=== PATIENT | female | born 1995 | race Caucasian/White ===

== ENCOUNTER 2017-01-21 21:19 | Emergency (ER) | payer BC ==
[2017-01-21 22:16] VITALS: BP 118/72
--- NOTE | 2017-01-21 22:20 | UC ---
Respiratory Complaint HPI - History of Current Complaint Stated Complaint: FEVER,COUGH,CONGESTION Time Seen by Provider: 01/21/17 22:14 Hx Last Menstrual Period: 10/29/15 ?: No Onset/Duration: Sudden Onset - 3 days, Lasting Days - 3, Worse Since - onset Severity Initially: Mild Severity Currently: Moderate Character: Cough: Nonproductive Associated Signs And Symptoms: Positive: Dyspnea, Fever, Chills, Pleuritic Chest Pain, URI, Nasal Congestion, Hoarseness, Sinus Discomfort - Risk Factors Pulmonary Embolism Risk Factors: Negative Cardiac Risk Factors: Negative Tuberculosis Risk Factors: Negative - Allergies/Home Medications Allergies/Adverse Reactions: Allergies Allergy/AdvReac Type Severity Reaction Status Date / Time Methylphenidate Allergy Rash Verified 01/21/17 22:16 [From Concerta] Home Medications: Home Medications Amoxicillin CAP* [Amoxicillin 500 MG CAP*] 500 mg PO ONCE 01/21/17 [History Confirmed 01/21/17] PMH/Surg Hx/FS Hx/Imm Hx Endocrine History Of: Denies: Diabetes, Thyroid Disease Cardiovascular History Of: Denies: Cardiac Disorders, Hypertension Respiratory History Of: Denies: COPD, Asthma GI/ History Of: Denies: Ulcer - Surgical History Surgical History: None - Family History Known Family History: Negative: Cardiac Disease, Hypertension, Diabetes - Social History Occupation: Employed Full-time Lives: With Family Alcohol Use: Rare Substance Use Type: None Smoking Status (MU): Never Smoked Tobacco Have You Smoked in the Last Year: No Review of Systems Constitutional: Fever, Chills ENT: Sore Throat, Nasal Discharge Respiratory: Shortness Of Breath, Cough Cardiovascular: Chest Pain - with coughing. Neurological: Headache - from frontal sinus wrapping around the head. All Other Systems Reviewed And Are Negative: Yes Physical Exam Triage Information Reviewed: Yes Appearance: No Pain Distress, Well-Nourished, Ill-Appearing - moderately Vital Signs Reviewed: Yes Eyes: Positive: Conjunctiva Inflamed - OU ENT: Positive: Pharynx normal, TMs normal Neck: Positive: Nontender, No Lymphadenopathy Respiratory: Positive: Lungs clear, Wheezing - expiratory with coughing Cardiovascular: Positive: No Murmur, Tachycardia Musculoskeletal Exam: Normal Neurological: Positive: Fatigued Psychological Exam: Normal Skin Exam: Normal Respiratory Course/Dx - Differential Dx/Diagnosis Differential Diagnosis/HQI/PQRI: Influenza, Lower Resp Infection, Sinusitis Provider Diagnoses: Influenza Type B Discharge - Discharge Plan Condition: Stable Disposition: HOME Prescriptions: Oseltamivir CAP* [Tamiflu CAP*] 75 mg PO BID #10 cap Patient Education Materials: Influenza (ED), Oseltamivir (By mouth)
[2017-01-21] MEDS ORDERED: Ibuprofen TAB* 600 MG PO ONE (22:46)
[2017-01-21] MEDS ORDERED: Oseltamivir CAP* 75 MG PO ONE (22:46)
== END 2017-01-21 22:57 | disposition home or self-care (01) ==
LOC: UCCORT 21:19
DX: J11.1 Influenza due to unidentified influenza virus with other respiratory manifestations (principal)
CPT/HCPCS: 87502; 99212; A9270-GY; G0463

== ENCOUNTER 2017-03-12 17:12 | Emergency (ER) | payer SELFPAY ==
--- NOTE | 2017-03-12 20:04 | UC ---
Complaint Female HPI - HPI Summary HPI Summary: 4 days of lower abd pain/ pressure and pressure/discomfort with urination - History Of Current Complaint Chief Complaint: UCAbdominalPain Stated Complaint: ABDOMINAL PAIN/FEVER Time Seen by Provider: 03/12/17 19:52 Hx Obtained From: Patient Hx Last Menstrual Period: 02/09/17 ?: No Onset/Duration: Sudden Onset, Lasting Days - 4, Still Present Timing: Constant Severity Initially: Moderate Severity Currently: Moderate Pain Intensity: 7 Pain Scale Used: 0-10 Numeric Character: Burning - pressure Aggravating Factor(s): Urination Alleviating Factor(s): Nothing Associated Signs And Symptoms: Positive: Nausea. 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 Endocrine History Of: Denies: Diabetes, Thyroid Disease Cardiovascular History Of: Denies: Cardiac Disorders, Hypertension Respiratory History Of: Denies: COPD, Asthma GI/ History Of: Denies: Ulcer - Surgical History Surgical History: None - Family History Known Family History: Positive: Unknown Negative: Cardiac Disease, Hypertension, Diabetes Family History: no cardio vascular gu issues reported in family lineage - Social History Occupation: Employed Full-time Lives: With Family Alcohol Use: Occasionally Substance Use Type: None Smoking Status (MU): Never Smoked Tobacco Have You Smoked in the Last Year: No - Immunization History Most Recent Influenza Vaccination: NONE Review of Systems Constitutional: Fever Skin: Negative Eyes: Negative ENT: Negative Respiratory: Negative Cardiovascular: Negative Gastrointestinal: Abdominal Pain Genitourinary: Dysuria Motor: Negative Neurovascular: Negative Musculoskeletal: Negative Neurological: Negative Psychological: Negative All Other Systems Reviewed And Are Negative: Yes Physical Exam Triage Information Reviewed: Yes Appearance: Well-Appearing, No Pain Distress, Well-Nourished Vital Signs: Initial Vital Signs Temp 99.9 F 03/12/17 17:30 Pulse 106 03/12/17 17:30 Resp 14 03/12/17 17:30 BP 123/69 03/12/17 17:30 Pulse Ox 100 03/12/17 17:30 Vital Signs Reviewed: Yes Eye Exam: Normal Eyes: Positive: Conjunctiva Clear ENT Exam: Normal ENT: Positive: Normal ENT inspection, Hearing grossly normal, Pharynx normal, TMs normal. Negative: Nasal congestion, Nasal drainage, Tonsillar swelling, Tonsillar exudate, Trismus, Muffled/hoarse voice Dental Exam: Normal Neck exam: Normal Neck: Positive: Supple, Nontender, No Lymphadenopathy Respiratory Exam: Normal Respiratory: Positive: Chest non-tender, Lungs clear, Normal breath sounds, No respiratory distress, No accessory muscle use Cardiovascular Exam: Normal Cardiovascular: Positive: No Murmur, Pulses Normal, Brisk Capillary Refill, Tachycardia Abdominal Exam: Normal Abdomen Description: Positive: No Organomegaly, Soft, Other: - lower abd discomfort. Negative: CVA Tenderness (R), CVA Tenderness (L), Distended Musculoskeletal Exam: Normal Musculoskeletal: Positive: Strength Intact, ROM Intact, No Edema Neurological Exam: Normal Neurological: Positive: Alert, Muscle Tone Normal Psychological Exam: Normal Skin Exam: Normal Complaint Female Dx - Course Course Of Treatment: Culture urine, Rocephin, Keflex increase fluids, follow with pcp - Differential Dx/Diagnosis Differential Diagnosis/HQI/PQRI: Pelvic Inflammatory Disease, Renal Colic, Urinary Tract Infection Provider Diagnoses: UTI, Febrile Illness Discharge - Discharge Plan Condition: Stable Disposition: HOME Prescriptions: Cephalexin CAP* [Keflex CAP*] 500 mg PO BID #20 cap Patient Education Materials: Urinary Tract Infection in Women (ED) Forms: *Work Release Referrals: [facility] [Outside] - 1 Week No Primary Care Phys,NOPCP [Primary Care Provider] -
[2017-03-12] MEDS ORDERED: Lidocaine 1% MPF* 2 ML VIAL INJ ONE (20:13)
[2017-03-12] MEDS ORDERED: cefTRIAXone VIAL(*) 1,000 MG VIAL IM ONE (20:13)
[2017-03-12 20:31] VITALS: BP 121/64
== END 2017-03-12 20:48 | disposition home or self-care (01) ==
LOC: UCCORT 17:12
DX: N39.0 Urinary tract infection, site not specified (principal); R50.9 Fever, unspecified
CPT/HCPCS: 81003; 84702; 87086; 96372; 99212; G0463; J0696

== ENCOUNTER 2017-10-23 12:18 | Emergency (ER) | payer BC, OTHER ==
[2017-10-23 13:37] VITALS: BP 124/64
--- NOTE | 2017-10-23 13:59 | UC ---
Complaint Female HPI - HPI Summary HPI Summary: burning on urination x 1 day + frequency , urgency no fever, no chills, no flank pain - History Of Current Complaint Chief Complaint: UCGU Stated Complaint: URINARY Time Seen by Provider: 10/23/17 13:46 Hx Obtained From: Patient Hx Last Menstrual Period: 10/04/17 ?: No Onset/Duration: Gradual Onset, Lasting Days - 1, Still Present Timing: Constant Severity Initially: Moderate Severity Currently: Moderate Character: Burning Aggravating Factor(s): Urination Alleviating Factor(s): Nothing Associated Signs And Symptoms: Negative: Fever, Back Pain, Vaginal Bleeding/ Discharge, Vaginal Discharge, Nausea, Vomiting(# Of Episodes =), Genital Swelling, Genital Blisters, Retained Foregin Body (Specify) - Allergies/Home Medications Allergies/Adverse Reactions: Allergies Allergy/AdvReac Type Severity Reaction Status Date / Time Methylphenidate Allergy Rash Verified 10/23/17 13:33 [From [employer]] Home Medications: Home Medications Nuva Ring ONCE 10/23/17 [History] Phendimetrazine Tartrate 2 tab PO TID 10/23/17 [History Confirmed 10/23/17] PMH/Surg Hx/FS Hx/Imm Hx Previously Healthy: Yes - Surgical History Surgical History: None - Family History Known Family History: Positive: Unknown Negative: Cardiac Disease, Hypertension, Diabetes Family History: no cardio vascular gu issues reported in family lineage - Social History Alcohol Use: Occasionally Substance Use Type: None Smoking Status (MU): Never Smoked Tobacco Have You Smoked in the Last Year: No - Immunization History Most Recent Influenza Vaccination: NONE Review of Systems Constitutional: Negative Skin: Negative Eyes: Negative ENT: Negative Respiratory: Negative Genitourinary: Dysuria, Frequency, Urgency Motor: Negative Is Patient Immunocompromised?: No All Other Systems Reviewed And Are Negative: Yes Physical Exam Triage Information Reviewed: Yes Appearance: Well-Appearing, Well-Nourished, Obese Vital Signs: Initial Vital Signs Temp 98 F 10/23/17 13:35 Pulse 93 10/23/17 13:35 Resp 16 10/23/17 13:35 BP 124/64 10/23/17 13:35 Vital Signs Reviewed: Yes Eyes: Positive: Conjunctiva Clear ENT: Positive: Normal ENT inspection, Hearing grossly normal, Pharynx normal Neck: Positive: Supple, Nontender, No Lymphadenopathy Respiratory: Positive: Chest non-tender, Lungs clear, Normal breath sounds Cardiovascular: Positive: RRR, No Murmur, Pulses Normal Musculoskeletal Exam: Normal Skin Exam: Normal Complaint Female Dx - Differential Dx/Diagnosis Provider Diagnoses: uti Discharge - Discharge Plan Condition: Stable Disposition: HOME Prescriptions: Sulfamethox/Trimethoprim DS* [Bactrim DS 800/160 TAB*] 1 tab PO BID #14 tab Patient Education Materials: Urinary Tract Infection in Women (ED) Referrals: Raoul Odell MD [Primary Care Provider] -
== END 2017-10-23 14:09 | disposition home or self-care (01) ==
LOC: UCCORT 12:18
DX: N39.0 Urinary tract infection, site not specified (principal); Z72.89 Other problems related to lifestyle
CPT/HCPCS: 81003; 87086; 99212; G0463

== ENCOUNTER 2018-04-09 16:37 | Emergency (ER) | payer BC, OTHER ==
[2018-04-09 17:06] VITALS: BP 113/65
--- NOTE | 2018-04-09 17:28 | UC ---
Complaint Female HPI - HPI Summary HPI Summary: Patient is complaining of what she believes to be urinary tract infection. She describes as frequency urgency and burning with urination. She states that she had urinary tract infection past and this feels the same. She has no fever, abdominal pain, back pain or concerns for pelvic infection. This is day 4 of her symptoms. - History Of Current Complaint Hx Obtained From: Patient Hx Last Menstrual Period: 03/29/18 Onset/Duration: Gradual Onset Timing: Constant Pain Intensity: 0 Aggravating Factor(s): Nothing Alleviating Factor(s): Nothing Associated Signs And Symptoms: Negative: Fever, Back Pain, Vaginal Bleeding/ Discharge <Leah Nix - Last Filed: 04/09/18 17:28> <Parth Bustamante - Last Filed: 04/09/18 20:03> - History Of Current Complaint Chief Complaint: UCGU Stated Complaint: URINARY COMPLAINT Time Seen by Provider: 04/09/18 17:09 - Allergies/Home Medications Allergies/Adverse Reactions: Allergies Allergy/AdvReac Type Severity Reaction Status Date / Time methylphenidate Allergy Intermediate Rash Verified 04/09/18 17:09 [From [employer]] PMH/Surg Hx/FS Hx/Imm Hx Previously Healthy: Yes - Surgical History Surgical History: Yes Surgery Procedure, Year, and Place: appendectomy 01/2018 - Family History Known Family History: Positive: Unknown Negative: Cardiac Disease, Hypertension, Diabetes Family History: no cardio vascular gu issues reported in family lineage - Social History Occupation: Employed Full-time Lives: With Family Alcohol Use: Occasionally Substance Use Type: None Smoking Status (MU): Never Smoked Tobacco Have You Smoked in the Last Year: No - Immunization History Most Recent Influenza Vaccination: NONE <Leah Nix - Last Filed: 04/09/18 17:28> Review of Systems Constitutional: Negative Skin: Negative Eyes: Negative ENT: Negative Respiratory: Negative Cardiovascular: Negative Gastrointestinal: Negative Genitourinary: Dysuria, Frequency, Urgency Motor: Negative Neurovascular: Negative Musculoskeletal: Negative Neurological: Negative Psychological: Negative Is Patient Immunocompromised?: No All Other Systems Reviewed And Are Negative: Yes <Leah Nix - Last Filed: 04/09/18 17:28> Physical Exam Triage Information Reviewed: Yes Appearance: Well-Appearing Vital Signs: Initial Vital Signs Temp 98.2 F 04/09/18 17:03 Pulse 88 06/26/18 17:03 Resp 16 04/09/18 17:03 BP 113/65 04/09/18 17:03 Pulse Ox 100 04/09/18 17:03 Vital Signs Reviewed: Yes Eyes: Positive: Conjunctiva Clear ENT: Positive: Normal ENT inspection Neck: Positive: Supple, Nontender, No Lymphadenopathy Respiratory: Positive: Lungs clear, Normal breath sounds Cardiovascular: Positive: RRR, No Murmur Abdomen Description: Positive: Nontender, No Organomegaly, Soft. Negative: CVA Tenderness (R), CVA Tenderness (L), Distended, Guarding Bowel Sounds: Positive: Present Musculoskeletal: Positive: ROM Intact Neurological: Positive: Alert Psychological: Positive: Age Appropriate Behavior Skin Exam: Normal <Leah Nix - Last Filed: 04/09/18 17:28> Vital Signs: Initial Vital Signs Temp 98.2 F 04/09/18 17:03 Pulse 88 04/09/18 17:03 Resp 16 04/09/18 17:03 BP 113/65 04/09/18 17:03 Pulse Ox 100 04/09/18 17:03 <Parth Bustamante - Last Filed: 04/09/18 20:03> Diagnostics - Laboratory Diagnostic Studies Completed/Ordered: u/a + for leukocytes. culture pending. <Leah Nix - Last Filed: 04/09/18 17:28> Complaint Female Dx - Course Course Of Treatment: no concern for pyelonephritis. no acute abdomen. - Differential Dx/Diagnosis Provider Diagnoses: UTI <Leah Nix - Last Filed: 04/09/18 17:28> Discharge - Sign-Out/Discharge Documenting (check all that apply): Discharge/Admit/Transfer - Billing Disposition and Condition Condition: STABLE Disposition: Home <Leah Nix - Last Filed: 04/09/18 17:28> - Billing Disposition and Condition Condition: STABLE Disposition: Home <Parth Bustamante - Last Filed: 04/09/18 20:03> - Discharge Plan Condition: Stable Disposition: HOME Prescriptions: Nitrofurantoin Monohyd/M-Cryst [Macrobid 100 mg Capsule] 100 mg PO BID #10 cap Patient Education Materials: Urinary Tract Infection in Women (DC) Referrals: Raoul Odell MD [Primary Care Provider] - 7 Days Additional Instructions: Per institutional requirements, I have reviewed the chart, however, I was not consulted specifically or made aware of this patient by the above midlevel provider. I did not personally evaluate, interact with , or disposition this patient.
== END 2018-04-09 17:31 | disposition home or self-care (01) ==
LOC: UCCORT 16:37
DX: N39.0 Urinary tract infection, site not specified (principal); B96.20 Unspecified Escherichia coli [E. coli] as the cause of diseases classified elsewhere; Z88.8 Allergy status to other drugs, medicaments and biological substances
CPT/HCPCS: 81003; 87077; 87086; 87186; 99212; G0463

== ENCOUNTER 2018-06-09 12:11 | Emergency (ER) | payer BC ==
[2018-06-09 13:30] VITALS: BP 112/68
--- NOTE | 2018-06-09 13:45 | UC ---
Back Pain HPI - HPI Summary HPI Summary: patient states that while lifting heavy large pieces of firewood yesterday she experienced a sudden sharp pain on the left side of her lower back he states that it radiated into her leg. Today she has some ongoing discomfort in her left lower back and notes that if she puts any pressure on her left buttock such as sitting she feels the tingling and numbness in her left leg. She denies any associated fever and abdominal pain. She has no associated weakness in her legs, saddle anesthesia or bowel/bladder dysfunction. no self tx. - History of Current Complaint Chief Complaint: UCBackPain Stated Complaint: LOWER BACK PAIN Time Seen by Provider: 06/09/18 13:36 Hx Obtained From: Patient Hx Last Menstrual Period: 04/28/18 Onset/Duration: Sudden Onset Timing: Constant Pain Intensity: 5 Aggravating Factor(s): Movement, Other - pressure L buttock Associated Signs And Symptoms: Negative: Fever, Weakness, Abdominal Pain, Flank Pain, Bladder Incontinence, Bowel Incontinence - Risk Factors AAA Risk Factors: Negative TAD Risk Factors: Negative - Allergies/Home Medications Allergies/Adverse Reactions: Allergies Allergy/AdvReac Type Severity Reaction Status Date / Time methylphenidate Allergy Intermediate Rash Verified 06/09/18 13:22 [From [employer]] PMH/Surg Hx/FS Hx/Imm Hx Previously Healthy: Yes - Surgical History Surgical History: Yes Surgery Procedure, Year, and Place: appendectomy 01/2018 - Family History Known Family History: Positive: None Negative: Cardiac Disease, Hypertension, Diabetes Family History: no cardio vascular gu issues reported in family lineage - Social History Occupation: Employed Full-time Alcohol Use: Occasionally Substance Use Type: None Smoking Status (MU): Never Smoked Tobacco Have You Smoked in the Last Year: No - Immunization History Most Recent Influenza Vaccination: NONE Vaccination Up to Date: Yes Review of Systems Constitutional: Negative Skin: Negative Eyes: Negative ENT: Negative Respiratory: Negative Cardiovascular: Negative Gastrointestinal: Negative Genitourinary: Negative Motor: Negative Neurovascular: Negative Musculoskeletal: Other: - pain L low back Neurological: Numbness - occ LLE Psychological: Negative Is Patient Immunocompromised?: No All Other Systems Reviewed And Are Negative: Yes Physical Exam Triage Information Reviewed: Yes Appearance: Well-Appearing Vital Signs: Initial Vital Signs Temp 98.8 F 06/09/18 13:23 Pulse 80 08/26/18 13:23 Resp 16 06/09/18 13:23 BP 112/68 06/09/18 13:23 Pulse Ox 99 06/09/18 13:23 Vital Signs Reviewed: Yes Eyes: Positive: Conjunctiva Clear ENT: Positive: Normal ENT inspection Neck: Positive: Supple, Nontender, No Lymphadenopathy Respiratory: Positive: Lungs clear, Normal breath sounds Cardiovascular: Positive: RRR, No Murmur Abdomen Description: Positive: Nontender, No Organomegaly, Soft. Negative: Distended, Guarding Bowel Sounds: Positive: Present Musculoskeletal: Positive: Other: - Back is Bare for exam. No gross deformity swelling or discoloration. Cervical thoracic and lumbar spinous processes are without tenderness to palpation and there is no instability. Patient notes tenderness to palpation to her paraspinal muscles in the left lumbar region. She has tenderness to palpation of left sciatic notch which also reproduces discomfort into her left lower extremity. Range of motion in her back is intact throughout. She is 5 out of 5 strength and 2+ reflexes 4 area did no saddle anesthesia. Steady gait. Straight leg raise on the right was negative. Straight leg raise on the left is positive. Neurological: Positive: Alert Psychological: Positive: Age Appropriate Behavior Skin Exam: Normal Back Pain Course/Dx - Course Course Of Treatment: No concern for acute abdomen, infection and fracture. No concern for cauda equina. Exam is consistent with acute left low back pain and sciatica. Single dose of Decadron given here. We will continue with anti- inflammatory and muscle relaxer home. Close follow-up with primary care provider for recheck advised. Patient advised to follow up sooner for any change or worsening. She is also being removed from work for 3 days. - Differential Dx/Diagnosis Provider Diagnoses: Acute left low back pain. Sciatica-left Discharge - Sign-Out/Discharge Documenting (check all that apply): Patient Departure All imaging exams completed and their final reports reviewed: No Studies - Discharge Plan Condition: Stable Disposition: HOME Prescriptions: Cyclobenzaprine TAB* [Flexeril 10 MG TAB*] 10 mg PO TID #10 tab Naproxen [Naprosyn 500 mg tab] 500 mg PO BID 5 Days #10 tablet Patient Education Materials: Sciatica (ED), Acute Low Back Pain (ED) Forms: *Work Release Referrals: Raoul Odell MD [Primary Care Provider] - 3 Days - Billing Disposition and Condition Condition: STABLE Disposition: Home
[2018-06-09] MEDS ORDERED: Dexamethasone TAB* 4 MG PO ONE (13:51)
== END 2018-06-09 14:03 | disposition home or self-care (01) ==
LOC: UCCORT 12:11
DX: M54.42 Lumbago with sciatica, left side (principal); Z88.8 Allergy status to other drugs, medicaments and biological substances
CPT/HCPCS: 99212; G0463; J8540

== ENCOUNTER 2018-09-02 16:58 | Emergency (ER) | payer BC ==
[2018-09-02 17:29] VITALS: BP 121/62
--- NOTE | 2018-09-02 17:46 | UC ---
Respiratory Complaint HPI - HPI Summary HPI Summary: 23 year old female presents with 2 week history of non-productive cough. Denies fever, chills, nasal congestion, sore throat, chest pain, shortness of breath, abdominal pain, nausea, or vomiting. - History of Current Complaint Chief Complaint: UCGeneralIllness Stated Complaint: COUGH Time Seen by Provider: 09/02/18 17:34 Hx Obtained From: Patient Hx Last Menstrual Period: 08/29/18 Onset/Duration: Gradual Onset, Lasting Weeks - 2 Pain Intensity: 0 Character: Cough: Nonproductive Aggravating Factors: Deep Breaths Alleviating Factors: Nothing Associated Signs And Symptoms: Negative: Dyspnea, Fever, Chills, Pleuritic Chest Pain, Wheezing, Hemoptysis, URI, Nasal Congestion, Sinus Discomfort - Allergies/Home Medications Allergies/Adverse Reactions: Allergies Allergy/AdvReac Type Severity Reaction Status Date / Time methylphenidate Allergy Intermediate Rash Verified 09/02/18 17:29 [From [employer]] Home Medications: Home Medications Phendimetrazine Tartrate 2 tab PO TID 09/02/18 [History Confirmed 09/02/18] PMH/Surg Hx/FS Hx/Imm Hx Previously Healthy: Yes - Denies significant PMH - Surgical History Surgical History: Yes Surgery Procedure, Year, and Place: appendectomy 01/2018 - Family History Known Family History: Positive: Non-Contributory - Social History Occupation: Employed Full-time Lives: With Family Alcohol Use: Occasionally Substance Use Type: None Smoking Status (MU): Never Smoked Tobacco Have You Smoked in the Last Year: No - Immunization History Most Recent Influenza Vaccination: NONE Vaccination Up to Date: Yes Review of Systems All Other Systems Reviewed And Are Negative: Yes Constitutional: Negative: Fever, Chills Skin: Negative: Rash ENT: Negative: Sore Throat, Ear Ache, Nasal Discharge, Sinus Congestion, Sinus Pain/Tenderness Respiratory: Positive: Cough. Negative: Shortness Of Breath Cardiovascular: Negative: Palpitations, Chest Pain Gastrointestinal: Negative: Abdominal Pain, Vomiting, Nausea Is Patient Immunocompromised?: No Physical Exam Triage Information Reviewed: Yes Appearance: Well-Appearing, No Pain Distress, Well-Nourished Vital Signs: Initial Vital Signs Temp 97.4 F 09/02/18 17:25 Pulse 89 09/02/18 17:25 Resp 17 09/02/18 17:25 BP 121/62 09/02/18 17:25 Pulse Ox 100 09/02/18 17:25 Eyes: Positive: Conjunctiva Clear. Negative: Discharge ENT: Positive: Hearing grossly normal, TMs normal, Uvula midline. Negative: Pharyngeal erythema, Nasal congestion, Nasal drainage, Tonsillar swelling, Tonsillar exudate, Sinus tenderness Neck: Positive: Supple, Nontender, No Lymphadenopathy Respiratory: Positive: Chest non-tender, Lungs clear, Normal breath sounds, No respiratory distress, Other: - Non-productive cough Cardiovascular: Positive: RRR, No Murmur, Pulses Normal, Brisk Capillary Refill Neurological: Positive: Alert Skin Exam: Normal Diagnostic Evaluation - Laboratory O2 Sat by Pulse Oximetry: 100 Respiratory Course/Dx - Course Course Of Treatment: 23 year old female with 2 week history of nonproductive cough. Afebrile. Exam unremarkable except for harsh, nonproductive cough. With duration of symptoms will treat with course of azithromycin and provide Tessalon Perles for cough management. She is to follow up with PCP in 7 days if symptoms persist. Warning symptoms were reviewed. Verbalizes understanding and agrees with POC. - Differential Dx/Diagnosis Differential Diagnosis/HQI/PQRI: Bronchitis, Influenza, Lower Resp Infection, Other - URI Provider Diagnoses: acute bronchitis Discharge - Sign-Out/Discharge Documenting (check all that apply): Patient Departure All imaging exams completed and their final reports reviewed: No Studies - Discharge Plan Condition: Stable Disposition: HOME Prescriptions: Azithromyxin VASHTI (NF) [Z-Vashti (Zithromax) 250 mg tabs #6] 2 tab PO .TODAY, THEN 1 DAILY #6 tab Benzonatate CAP* [Tessalon 100 MG CAP*] 100 mg PO TID PRN #30 cap PRN Reason: Cough Patient Education Materials: Acute Bronchitis (ED) Forms: *Work Release Referrals: Raoul Odell MD [Primary Care Provider] - 7 Days (If symptoms persist) Additional Instructions: Your history and exam are consistent with an acute bronchitis. Considering the duration of your symptoms we will treat you with an antibiotic. Start azithromycin 2 tabs today then 1 tab a day for the next 4 days. Use Tessalon Perles 1 cap every 8 hours as needed for cough. Get plenty of rest. Drink plenty of fluids. I would recommend using a humidifier in your bedroom at night. Follow up with your primary care provider in 7 days if symptoms persist. Seek immediate medical attention in the emergency room if you develop fever greater than 100.5 F, have chest pain, shortness of breath, or any worsening of symptoms. - Billing Disposition and Condition Condition: STABLE Disposition: Home
== END 2018-09-02 17:52 | disposition home or self-care (01) ==
LOC: UCCORT 16:58
DX: J20.9 Acute bronchitis, unspecified (principal); Z88.8 Allergy status to other drugs, medicaments and biological substances
CPT/HCPCS: 99212; G0463

== ENCOUNTER 2018-11-03 19:28 | Emergency (ER) | payer BC ==
[2018-11-03 20:20] VITALS: BP 123/60
--- NOTE | 2018-11-03 20:32 | UC ---
Hip/Pelvis Pain - HPI Summary HPI Summary: C/O left hip pain, occured while climbing into a tractor. [place] like a muscle/ joint slipping with a really sharp pain. Not jumping down. - History Of Current Complaint Chief Complaint: UCBackPain Stated Complaint: LEFT HIP PAIN Hx Obtained From: Patient Hx Last Menstrual Period: 10/26/18 ?: No Onset/Duration: Sudden Onset, Lasting Days - 3, Still Present Severity Initially: Moderate Severity Currently: Moderate Pain Intensity: 5 Location: Discrete At: - left anterior hip Character Of Pain: Sharp Aggravating Factor(s): Weight Bearing - climbing up gives the sharp pain., Other - certain positions gives numbness and tingling. Associated Signs And Symptoms: Positive: Weakness - with walking.. Negative: Swelling, Bruising - Allergies/Home Medications Allergies/Adverse Reactions: Allergies Allergy/AdvReac Type Severity Reaction Status Date / Time methylphenidate Allergy Intermediate Rash Verified 09/02/18 17:29 [From [employer]] Home Medications: Home Medications Acetaminophen [Mapap] 650 mg PO ONCE 11/03/18 [History Confirmed 11/03/18] PMH/Surg Hx/FS Hx/Imm Hx Previously Healthy: Yes - Surgical History Surgical History: Yes Surgery Procedure, Year, and Place: appendectomy 01/2018 - Family History Known Family History: Positive: Non-Contributory Negative: Cardiac Disease, Hypertension, Diabetes Family History: no cardio vascular gu issues reported in family lineage - Social History Occupation: Employed Full-time Lives: With Family Alcohol Use: Occasionally Substance Use Type: None Smoking Status (MU): Never Smoked Tobacco Have You Smoked in the Last Year: No - Immunization History Most Recent Influenza Vaccination: NONE Vaccination Up to Date: Yes Review of Systems All Other Systems Reviewed And Are Negative: Yes Musculoskeletal: Positive: Arthralgia - left hip Neurological: Positive: Weakness - left leg, Numbness Is Patient Immunocompromised?: No Physical Exam Triage Information Reviewed: Yes Appearance: Well-Appearing, Well-Nourished, Pain Distress - just with walking Vital Signs: Initial Vital Signs Temp 97.6 F 11/03/18 20:14 Pulse 80 11/03/18 20:14 Resp 17 11/03/18 20:14 BP 123/60 11/03/18 20:14 Pulse Ox 99 11/03/18 20:14 Vital Signs Reviewed: Yes Eyes: Positive: Conjunctiva Clear ENT: Positive: Pharynx normal, TMs normal Neck exam: Normal Respiratory Exam: Normal Cardiovascular Exam: Normal Musculoskeletal: Positive: Strength Limited @ - Left hip flexion. Gastroc on left weak as well, Other: - Tenderness left anterior hip over the hip flexors. Neurological: Positive: Other: - Dysaesthesia to pinprick left leg In the L5/S1 distribution. Psychological Exam: Normal Skin Exam: Normal Diagnostics - Radiology No standard instances Radiology Interpretation Completed By: ED Physician Summary of Radiographic Findings: L5S1 DDD Hip Injury Course/Dx - Differential Dx/Diagnosis Differential Diagnosis/HQI/PQRI: Sciatica, Sprain, Strain Provider Diagnosis: Lumbar radiculopathy, Strain of hip flexor Discharge - Sign-Out/Discharge Documenting (check all that apply): Patient Departure All imaging exams completed and their final reports reviewed: No Studies - Discharge Plan Condition: Stable Disposition: HOME Prescriptions: predniSONE TAB* [Deltasone 20 MG TAB*] 60 mg PO DAILY #18 tab Patient Education Materials: Lumbar Radiculopathy (ED), Prednisone (By mouth), Muscle Strain (ED) Forms: *Work Release Referrals: Raoul Odell MD [Primary Care Provider] - 2 Weeks (Recheck on the leg numbness and weakness) - Billing Disposition and Condition Condition: STABLE Disposition: Home
== END 2018-11-03 21:16 | disposition home or self-care (01) ==
LOC: UCCORT 19:28
DX: S76.012A Strain of muscle, fascia and tendon of left hip, initial encounter (principal); M54.16 Radiculopathy, lumbar region; Z88.8 Allergy status to other drugs, medicaments and biological substances; X58.XXXA Exposure to other specified factors, initial encounter; Y93.39 Activity, other involving climbing, rappelling and jumping off; Y92.9 Unspecified place or not applicable
CPT/HCPCS: 72110; 99212; G0463

== ENCOUNTER 2019-01-19 13:19 | Emergency (ER) | payer BC ==
[2019-01-19 14:24] VITALS: BP 108/64
--- NOTE | 2019-01-19 14:27 | UC ---
Throat Pain/Nasal Roman HPI - HPI Summary HPI Summary: Patient complaining of left sided frontal sinus pain, headache that is notgoing away. hx of migraines bu this headache is located above the left eye. - History of Current Complaint Stated Complaint: COUGH,CONGESTION Time Seen by Provider: 01/19/19 14:14 Hx Obtained From: Patient Hx Last Menstrual Period: 10/26/18 ?: No Onset/Duration: Sudden Onset, Lasting Days Severity: Moderate Associated Signs & Symptoms: Positive: Dysphagia, Sinus Discomfort, Nasal Discharge - Allergies/Home Medications Allergies/Adverse Reactions: Allergies Allergy/AdvReac Type Severity Reaction Status Date / Time methylphenidate Allergy Intermediate Rash Verified 01/19/19 14:22 [From [employer]] PMH/Surg Hx/FS Hx/Imm Hx Previously Healthy: Yes - Surgical History Surgical History: Yes Surgery Procedure, Year, and Place: appendectomy 01/2018 - Family History Known Family History: Positive: Non-Contributory Negative: Cardiac Disease, Hypertension, Diabetes Family History: no cardio vascular gu issues reported in family lineage - Social History Alcohol Use: Occasionally Substance Use Type: None Smoking Status (MU): Never Smoked Tobacco Have You Smoked in the Last Year: No - Immunization History Most Recent Influenza Vaccination: NONE Vaccination Up to Date: Yes Review of Systems All Other Systems Reviewed And Are Negative: Yes Constitutional: Positive: Fatigue Skin: Positive: Negative Eyes: Positive: Negative ENT: Positive: Sore Throat, Nasal Discharge, Sinus Congestion, Sinus Pain/ Tenderness Respiratory: Positive: Cough Cardiovascular: Positive: Negative Gastrointestinal: Positive: Negative Genitourinary: Positive: Negative Motor: Positive: Negative Neurovascular: Positive: Negative Musculoskeletal: Positive: Negative Neurological: Positive: Headache Psychological: Positive: Negative Is Patient Immunocompromised?: No Physical Exam Triage Information Reviewed: Yes Appearance: Well-Nourished, Ill-Appearing, Pain Distress Eye Exam: Normal ENT: Positive: Pharyngeal erythema - wiht pnd, Nasal congestion, TM bulging, Sinus tenderness Dental Exam: Normal Neck exam: Normal Respiratory Exam: Normal Respiratory: Positive: Chest non-tender, Lungs clear, Normal breath sounds Cardiovascular Exam: Normal Cardiovascular: Positive: RRR, No Murmur, Pulses Normal Abdominal Exam: Normal Abdomen Description: Positive: Nontender, No Organomegaly, Soft Bowel Sounds: Positive: Present Musculoskeletal Exam: Normal Neurological Exam: Normal Psychological Exam: Normal Skin Exam: Normal Throat Pain/Nasal Course/Dx - Course Course Of Treatment: hx obtained, exam performed ,meds reviewed, ua obtained to r/o . treated for sinusitis - Differential Dx/Diagnosis Differential Diagnosis/HQI/PQRI: Laryngitis, Otitis Media, Pharyngitis, Sinusitis, URI Provider Diagnosis: Sinusitis Discharge - Sign-Out/Discharge Documenting (check all that apply): Patient Departure All imaging exams completed and their final reports reviewed: No Studies - Discharge Plan Condition: Stable Disposition: HOME Patient Education Materials: Sinusitis (ED) Referrals: Raoul Odell MD [Primary Care Provider] - Additional Instructions: 1. take the medication as prescribed. INcrease fluids and take ibuprofen 400 mg every 4 hours for pain 3. Follow up as needed. - Billing Disposition and Condition Condition: STABLE Disposition: Home
== END 2019-01-19 14:49 | disposition home or self-care (01) ==
LOC: UCCORT 13:19
DX: J32.9 Chronic sinusitis, unspecified (principal); Z88.8 Allergy status to other drugs, medicaments and biological substances; R13.10 Dysphagia, unspecified
CPT/HCPCS: 84702; 99212; G0463

== ENCOUNTER 2019-04-09 13:27 | Emergency (ER) | payer BC ==
[2019-04-09 13:42] VITALS: BP 134/66
--- NOTE | 2019-04-09 14:42 | UC ---
Abdominal Pain Female HPI - HPI Summary HPI Summary: 23-year-old female comes in with chief complaint of intermittent upper abdominal pain for 5 days. It's worse in the right upper quadrant. It gets worse after eating and calms down later. Does have a history of GERD and is having GERD symptoms. No fevers or chills. Stools been slightly electrologist than usual and looser. Patient is status post appendectomy. No dysuria no urinary symptoms. No fevers. - History of Current Complaint Chief Complaint: UCAbdominalPain Stated Complaint: ABD PAIN x 5 DAYS Time Seen by Provider: 04/09/19 13:57 Hx Last Menstrual Period: 04/07/19 (medicine induced) Pain Intensity: 2 Allergies/Adverse Reactions: Allergies Allergy/AdvReac Type Severity Reaction Status Date / Time methylphenidate Allergy Intermediate Rash Verified 04/09/19 13:37 [From Concerta] PMH/Surg Hx/FS Hx/Imm Hx Previously Healthy: Yes - Surgical History Surgical History: Yes Surgery Procedure, Year, and Place: Appendectomy, [facility] [place] - Family History Known Family History: Positive: Non-Contributory Negative: Cardiac Disease, Hypertension, Diabetes Family History: no cardio vascular gu issues reported in family lineage - Social History Alcohol Use: Occasionally Substance Use Type: None Smoking Status (MU): Never Smoked Tobacco Have You Smoked in the Last Year: No - Immunization History Most Recent Influenza Vaccination: NONE Vaccination Up to Date: Yes Review of Systems All Other Systems Reviewed And Are Negative: Yes Constitutional: Positive: Negative Skin: Positive: Negative Eyes: Positive: Negative ENT: Positive: Negative Respiratory: Positive: Negative Cardiovascular: Positive: Negative Gastrointestinal: Positive: Abdominal Pain Genitourinary: Positive: Negative Motor: Positive: Negative Neurovascular: Positive: Negative Musculoskeletal: Positive: Negative Neurological: Positive: Negative Psychological: Positive: Negative Is Patient Immunocompromised?: No Physical Exam Triage Information Reviewed: Yes Appearance: Well-Appearing, No Pain Distress, Well-Nourished Vital Signs: Initial Vital Signs Temp 98.1 F 04/09/19 13:34 Pulse 100 04/09/19 13:34 Resp 18 04/09/19 13:34 BP 134/66 04/09/19 13:34 Pulse Ox 100 04/09/19 13:34 Vital Signs Reviewed: Yes Eye Exam: Normal Eyes: Positive: Conjunctiva Clear Neck: Positive: Supple Respiratory: Positive: Lungs clear, Normal breath sounds, No respiratory distress Cardiovascular: Positive: RRR Abdomen Description: Positive: Other: - Tender to palpation RUQ.. Negative: CVA Tenderness (R), CVA Tenderness (L), Distended Bowel Sounds: Positive: Present Musculoskeletal Exam: Normal Musculoskeletal: Positive: Strength Intact, ROM Intact Neurological Exam: Normal Neurological: Positive: Alert, Muscle Tone Normal Psychological Exam: Normal Psychological: Positive: Age Appropriate Behavior Skin Exam: Normal Abd Pain Female Course/Dx - Course Course Of Treatment: Patient Name: MELISSA MONTANO Medical Record#: [id number] Ordering Physician: Rhett Lopez MD Acct.#: [id number] : 1995 Age: 23 Sex: F Location: [facility] Exam Date: 04/09/19 140 ADM Status: REG ER Order Information: US GALL BLADDER Accession Number: [id number] CPT: 73020 Indication: RIGHT upper quadrant pain. Comparison: March 18, 2011 Technique: RIGHT upper quadrant ultrasound. Report: Appropriate direction flow documented in the portal and hepatic veins. 14.3 cm liver is normal in echogenicity. Negative for focal hepatic lesions. Negative for intrahepatic biliary dilatation. 0.3 cm common bile duct. Incompletely distended gallbladder due to short postprandial status limiting assessment and likely accounting for top normal 0.3 cm gallbladder wall. No conspicuous cholelithiasis or pericholecystic fluid. Generalized tenderness noted at the RIGHT upper quadrant on real-time scanning. The pancreatic tail is partially obscured due to bowel gas with the visualized pancreas unremarkable. Negative for ascites. 9.7 x 4.5 x 5.1 cm RIGHT kidney is unremarkable. IMPRESSION: #. Incompletely distended gallbladder due to short postprandial status limiting assessment and likely accounting for top normal 0.3 cm gallbladder wall. No conspicuous cholelithiasis or pericholecystic fluid. Generalized tenderness noted at the RIGHT upper quadrant on real-time scanning. <Electronically signed by Pj Rutherford MD in OV> 04/09/19 2670 I discussed the ultrasound report with the patient. Patient was tender during the exam however there was no gallstones seen. She had just eaten so that did affect the quality of the ultrasound. At this time the plan is to start the patient on omeprazole 20 mg by mouth twice a day and have her follow-up with primary care physician. CBC CMP and lipase are all pending. We discussed going to emergency department if her pain continues or gets worse or she has any worsening of her condition. - Differential Dx/Diagnosis Provider Diagnosis: RUQ abdominal pain Discharge - Sign-Out/Discharge Documenting (check all that apply): Patient Departure All imaging exams completed and their final reports reviewed: Yes - Discharge Plan Condition: Stable Disposition: HOME Prescriptions: Omeprazole 20 mg PO BID #30 capsule. Patient Education Materials: Acute Abdominal Pain (ED), Epigastric Pain (ED) Forms: *Work Release Referrals: Raoul Odell MD [Primary Care Provider] - Additional Instructions: FOLLOW UP WITH YOUR DOCTOR. GO TO THE EMERGENCY DEPARTMENT IF YOUR CONDITION WORSENS; PAIN, FEVER, YOU FEEL ILL OR ANY QUESTIONS OR CONCERNS. - Billing Disposition and Condition Condition: STABLE Disposition: Home
[2019-04-09 17:38] LABS: ABS Basophils 0.1 10^3/ul (0-0.2); ABS Eosinophils 0.1 10^3/ul (0-0.6); ABS Lymphocytes 2.1 10^3/ul (1.0-4.8); ABS Monocytes 0.9 10^3/ul (0-0.8); ABS Neutrophils 8.5 10^3/ul (1.5-7.7); Hematocrit 39 % (35-47); Lymphocyte % 18.2 %; Mean Corpuscular HGB Conc 34 g/dL (31-36); Mean Corpuscular Hemoglobin 29 pg (27-31); Mean Corpuscular Volume 85 fL (80-97); Mean Platelet Volume 8.2 fL (7.4-10.4); Platelet Count 387 10^3/uL (150-450); Red Blood Count 4.54 10^6 /uL (3.70-4.87); Red Cell Distribution Width 14 % (10-15); White Blood Count 11.8 10^3/uL (3.5-10.8)
[2019-04-09 17:42] LABS: Albumin 4.4 g/dL (3.2-5.2); Anion Gap 7 mmol/L (2-11); CO2 Carbon Dioxide 28 mmol/L (22-32); Calcium 9.8 mg/dL (8.6-10.3); Chloride 104 mmol/L (101-111); Potassium 4.1 mmol/L (3.5-5.0); Sodium 139 mmol/L (135-145)
[2019-04-09 17:49] LABS: ALT 10 U/L (7-52); AST 12 U/L (13-39); Albumin/Globulin Ratio 1.5 (1-3); Alkaline Phosphatase 90 U/L (34-104); Blood Urea Nitrogen 12 mg/dL (6-24); EGFR African American 98.9 (>60); EGFR Non-African American 81.8 (>60); Globulin 2.9 g/dL (2-4); Glucose 98 mg/dL (70-100); Total Protein 7.3 g/dL (6.4-8.9)
== END 2019-04-09 15:20 | disposition home or self-care (01) ==
LOC: UCCORT 13:27
DX: R10.11 Right upper quadrant pain (principal)
CPT/HCPCS: 36415; 76705; 80053; 83690; 85025; 99212; G0463

== ENCOUNTER 2019-05-21 10:27 | Emergency (ER) | payer BC, OTHER ==
[2019-05-21 10:44] VITALS: BP 114/62
--- NOTE | 2019-05-21 11:15 | UC ---
Throat Pain/Nasal Roman HPI - HPI Summary HPI Summary: Pt presents with c/o sore throat, right side tonsil only with c/o swelling and "white spots" that she noticed this morning. Denies fever chills or difficulty swallowing. - History of Current Complaint Chief Complaint: UCRespiratory Stated Complaint: THROAT COMPLAINT Time Seen by Provider: 05/21/19 10:46 Hx Obtained From: Patient Hx Last Menstrual Period: 04/08/19 ?: No Onset/Duration: Sudden Onset, Lasting Days, Still Present Severity: Mild Pain Intensity: 2 Cough: None Associated Signs & Symptoms: Positive: Dysphagia - Epiglottits Risk Factors Epiglottis Risk Factors: Sudden Onset - Allergies/Home Medications Allergies/Adverse Reactions: Allergies Allergy/AdvReac Type Severity Reaction Status Date / Time methylphenidate Allergy Intermediate Rash Verified 05/21/19 10:43 [From Concerta] Home Medications: Home Medications NK [No Home Medications Reported] 05/21/19 [History Confirmed 05/21/19] PMH/Surg Hx/FS Hx/Imm Hx Previously Healthy: Yes Psychological History: Other - ADD - Surgical History Surgical History: Yes Surgery Procedure, Year, and Place: Appendectomy, 2018, [place] - Family History Known Family History: Positive: Non-Contributory Negative: Cardiac Disease, Hypertension, Diabetes Family History: no cardio vascular gu issues reported in family lineage - Social History Occupation: Employed Full-time Lives: With Family Alcohol Use: Occasionally Substance Use Type: None Smoking Status (MU): Never Smoked Tobacco Have You Smoked in the Last Year: No - Immunization History Most Recent Influenza Vaccination: NONE Vaccination Up to Date: Yes Review of Systems All Other Systems Reviewed And Are Negative: Yes Constitutional: Positive: Negative Skin: Positive: Negative Eyes: Positive: Negative ENT: Positive: Sore Throat Respiratory: Positive: Negative Cardiovascular: Positive: Negative Gastrointestinal: Positive: Negative Genitourinary: Positive: Negative Motor: Positive: Negative Neurovascular: Positive: Negative Musculoskeletal: Positive: Negative Neurological: Positive: Negative Psychological: Positive: Negative Is Patient Immunocompromised?: No Physical Exam Triage Information Reviewed: Yes Appearance: Well-Appearing Vital Signs: Initial Vital Signs Temp 97.9 F 05/21/19 10:38 Pulse 94 05/21/19 10:38 Resp 15 05/21/19 10:38 BP 114/62 05/21/19 10:38 Pulse Ox 99 05/21/19 10:38 Vital Signs Reviewed: Yes Eye Exam: Normal ENT: Positive: Pharyngeal erythema, Tonsillar swelling - right larger than left Dental Exam: Normal Neck exam: Normal Respiratory Exam: Normal Cardiovascular Exam: Normal Musculoskeletal Exam: Normal Neurological Exam: Normal Psychological Exam: Normal Skin Exam: Normal Throat Pain/Nasal Course/Dx - Differential Dx/Diagnosis Differential Diagnosis/HQI/PQRI: Mononucleosis, Pharyngitis, Tonsillitis Provider Diagnosis: Tonsillitis Discharge - Sign-Out/Discharge Documenting (check all that apply): Patient Departure All imaging exams completed and their final reports reviewed: No Studies - Discharge Plan Condition: Stable Disposition: HOME Patient Education Materials: Tonsillitis (ED) Forms: *Gen. Provider Communication Referrals: Raoul Odell MD [Primary Care Provider] - If Needed - Billing Disposition and Condition Condition: STABLE Disposition: Home
== END 2019-05-21 11:30 | disposition home or self-care (01) ==
LOC: UCCORT 10:27
DX: J03.90 Acute tonsillitis, unspecified (principal)
CPT/HCPCS: 87651; 99211; G0463

== ENCOUNTER 2019-09-24 13:15 | Emergency (ER) | payer BC, OTHER ==
[2019-09-24 13:36] VITALS: BP 125/45
--- NOTE | 2019-09-24 14:04 | UC ---
Complaint Female HPI - HPI Summary HPI Summary: dysuria x 1 day 3 out of 10 , + frequency , urgency lower abdominal pain , lower back pain no fever , no chills, no flank pain denies any n/v/d/c - History Of Current Complaint Chief Complaint: UCGU Stated Complaint: LOWER BACK PAIN Time Seen by Provider: 09/24/19 13:36 Hx Obtained From: Patient Hx Last Menstrual Period: 09/17/19 ?: No Onset/Duration: Gradual Onset, Lasting Days - 1 Timing: Constant Severity Initially: Moderate Severity Currently: Moderate Pain Intensity: 1 Character: Burning, Cramping Aggravating Factor(s): Movement Alleviating Factor(s): Nothing Associated Signs And Symptoms: Positive: Back Pain. Negative: Fever, Vaginal Bleeding/Discharge, Vaginal Discharge, Nausea, Vomiting(# Of Episodes =), Genital Swelling, Genital Blisters, Retained Foregin Body (Specify) - Allergies/Home Medications Allergies/Adverse Reactions: Allergies Allergy/AdvReac Type Severity Reaction Status Date / Time methylphenidate Allergy Intermediate Rash Verified 09/24/19 13:31 [From [employer]] Home Medications: Home Medications Naproxen Sodium [Aleve] 440 mg PO ONCE PRN 09/24/19 [History Confirmed 09/24/19] PMH/Surg Hx/FS Hx/Imm Hx - Additional Past Medical History Additional PMH: Congenital "kidney damage", Migraines, HSV - Surgical History Surgical History: Yes Surgery Procedure, Year, and Place: Appendectomy, [facility] - Family History Known Family History: Positive: Non-Contributory Negative: Cardiac Disease, Hypertension, Diabetes Family History: no cardio vascular gu issues reported in family lineage - Social History Alcohol Use: Occasionally Substance Use Type: None Smoking Status (MU): Never Smoked Tobacco Have You Smoked in the Last Year: No - Immunization History Most Recent Influenza Vaccination: NONE Vaccination Up to Date: Yes Review of Systems All Other Systems Reviewed And Are Negative: Yes Constitutional: Positive: Negative Skin: Positive: Negative Eyes: Positive: Negative ENT: Positive: Negative Respiratory: Positive: Negative Cardiovascular: Positive: Negative Gastrointestinal: Positive: Abdominal Pain Genitourinary: Positive: Dysuria, Hematuria, Frequency Is Patient Immunocompromised?: No Physical Exam Triage Information Reviewed: Yes Appearance: Well-Appearing, No Pain Distress, Well-Nourished Vital Signs: Initial Vital Signs Temp 98.7 F 09/24/19 13:32 Pulse 94 09/24/19 13:32 Resp 15 09/24/19 13:32 BP 125/45 09/24/19 13:32 Pulse Ox 100 09/24/19 13:32 Vital Signs Reviewed: Yes Eye Exam: Normal Eyes: Positive: Conjunctiva Clear ENT: Positive: Normal ENT inspection, Hearing grossly normal, Pharynx normal Neck: Positive: Supple, Nontender, No Lymphadenopathy Respiratory: Positive: Chest non-tender, Lungs clear, Normal breath sounds Cardiovascular: Positive: RRR, No Murmur, Pulses Normal Abdomen Description: Positive: Nontender, Soft. Negative: CVA Tenderness (R), CVA Tenderness (L), Distended, Guarding Bowel Sounds: Positive: Present Skin Exam: Normal Complaint Female Dx - Differential Dx/Diagnosis Provider Diagnosis: Dysuria Discharge ED - Sign-Out/Discharge Documenting (check all that apply): Patient Departure All imaging exams completed and their final reports reviewed: No Studies - Discharge Plan Condition: Stable Disposition: HOME Prescriptions: Sulfamethox/Trimethoprim DS* [Bactrim DS 800/160 TAB*] 1 tab PO BID #10 tab Patient Education Materials: Dysuria (ED) Referrals: Raoul Odell MD [Primary Care Provider] - If Needed - Billing Disposition and Condition Condition: STABLE Disposition: Home
--- NOTE | 2019-09-27 10:19 | UC ---
- Progress Note Progress Note: + E coli sensitive to bactrim no change jet Course/Dx - Diagnoses Provider Diagnoses: Dysuria Discharge ED - Sign-Out/Discharge Documenting (check all that apply): Post-Discharge Follow Up All imaging exams completed and their final reports reviewed: No Studies - Discharge Plan Condition: Stable Disposition: HOME Prescriptions: Sulfamethox/Trimethoprim DS* [Bactrim DS 800/160 TAB*] 1 tab PO BID #10 tab Patient Education Materials: Dysuria (ED) Referrals: Raoul Odell MD [Primary Care Provider] - If Needed - Billing Disposition and Condition Condition: STABLE Disposition: Home
== END 2019-09-24 14:05 | disposition home or self-care (01) ==
LOC: UCCORT 13:15
DX: R30.0 Dysuria (principal); R39.15 Urgency of urination; R35.0 Frequency of micturition; R10.30 Lower abdominal pain, unspecified; M54.5 Low back pain; Z88.8 Allergy status to other drugs, medicaments and biological substances
CPT/HCPCS: 81003; 87077; 87086; 87186; 99212; G0463